=== PATIENT | female | born 1990 | race African-American/Black ===

== ENCOUNTER 2016-10-18 11:58 | Emergency (ER) | payer OTHER ==
[~2016-10-18] VITALS: Ht 165.1 cm; Wt 49.0 kg
[~2016-10-18 11:58] MED LIST: SULF1TAB24 PO
[2016-10-18 12:18] VITALS: BP 99/67
[2016-10-18] MEDS ORDERED: AMOX1TAB61 PO (13:34)
--- NOTE | 2016-10-18 13:35 | PHYS DOC ---
Past Medical History Past Medical History: Asthma Past Surgical History: No Surgical History Alcohol Use: None Drug Use: None Adult General Chief Complaint Chief Complaint: EARACHE/EAR PAIN [facility] HPI Patient is a 26 year old female presents to the emergency department stating that she's been having right ear pain for the last few days. She states that last night she was a had some nasal congestion. Denies any fever, chills or any nausea vomiting. Patient denies taking any medications to help with pain or discomfort. Patient denies any possibility of being . Review of Systems Review of Systems Constitutional: Denies fever or chills [] Eyes: Denies change in visual acuity, redness, or eye pain [] HENT: Complaining nasal congestion, and ear pain right denies sore throat Respiratory: Denies cough or shortness of breath [] Cardiovascular: No additional information not addressed in HPI [] GI: Denies abdominal pain, nausea, vomiting, bloody stools or diarrhea [] : Denies dysuria or hematuria [] Musculoskeletal: Denies back pain or joint pain [] Integument: Denies rash or skin lesions [] Neurologic: Denies headache, focal weakness or sensory changes [] Endocrine: Denies polyuria or polydipsia [] Allergies Allergies Allergies Coded Allergies Type Severity Reaction Last Updated Verified Influenza Virus Vaccines Allergy Intermediate SICK 10/04/15 Yes Physical Exam Physical Exam Constitutional: Well developed, well nourished, no acute distress, non-toxic appearance. [] HENT: Normocephalic, atraumatic, bilateral external ears normal, oropharynx moist, no oral exudates, nose normal. Bilateral tympanic membranes appear to be normal. Throat with postnasal drip with redness. No erythematous no exudate noted. Eyes: PERRLA, EOMI, conjunctiva normal, no discharge. [] Neck: Normal range of motion, no tenderness, supple, no stridor. [] Cardiovascular:Heart rate regular rhythm, no murmur [] Lungs & Thorax: Bilateral breath sounds clear to auscultation [] Skin: Warm, dry, no erythema, no rash. [] Back: No tenderness Extremities: No tenderness, no cyanosis, no clubbing, ROM intact, no edema. [] Neurologic: Alert and oriented X 3, normal motor function, normal sensory function, no focal deficits noted. [] Psychologic: Affect normal, judgement normal, mood normal. [] Current Patient Data Vital Signs Vital Signs Date Time Temp Pulse Resp B/P (MAP) Pulse Ox O2 Delivery O2 Flow Rate FiO2 10/18/16 12:18 98.2 71 16 100 Room Air 98.2 EKG EKG [] Radiology/Procedures Radiology/Procedures [] Course & Med Decision Making Course & Med Decision Making Pertinent Labs and Imaging studies reviewed. (See chart for details) Patient was recommended to use Afrin 1 spray to bilateral naris twice a day for the next 3 days. Also recommended Sudafed and Mucinex DM. Patient was also provided with an antibiotic Augmentin. She'll be discharged home in stable condition with recommendations to drink plenty of fluids. Patient was provided with signs and symptoms to return back to emergency department. Patient agrees with discharge instructions treatment regimens follow-up recommendations. All questions and concerns been answered at patient's bedside. [] Dragon Disclaimer Dragon Disclaimer This electronic medical record was generated, in whole or in part, using a voice recognition dictation system. Departure Departure Impression: Primary Impression: Upper respiratory infection Additional Impression: Otalgia of right ear Disposition: HOME, SELF-CARE Condition: STABLE Referrals: NO PCP (PCP) Patient Instructions: Otalgia-Brief, Upper Respiratory Infection, Adult, Easy- to-Read Additional Instructions: Activity as tolerated. You may use Afrin [id number] 1 spray to bilateral naris twice a day for 3 days only. Were you may use Sudafed [id number] to help with nasal congestion. He is as instructed by aerial survey technician. Mucinex DM will also help with nasal congestion. Take this as directed by aerial survey technician as well. Antibiotics as prescribed. Drink plenty of fluids. Tylenol or ibuprofen for fever chills or generalized body aches and discomfort. Follow-up the primary care physician in the next week. Return back to emergency prior signs symptoms of become worse. Scripts Amoxicillin/Potassium Clav (AUGMENTIN [id number] TABLET) 1 Each Tablet 1 TAB PO BID, #20 TAB Prov: FABIANO RAMIRES APRN 10/18/16 Problem Qualifiers Primary Impression: Upper respiratory infection URI type: unspecified URI Qualified Codes: J06.9 - Acute upper respiratory infection, unspecified FABIANO RAMIRES APRN Oct 18, 2016 13:35
== END 2016-10-18 13:53 | disposition home or self-care (01) ==
LOC: ER 11:58
DX: H92.01 Otalgia, right ear (principal); J06.9 Acute upper respiratory infection, unspecified; J45.909 Unspecified asthma, uncomplicated; Z88.7 Allergy status to serum and vaccine
CPT/HCPCS: 99283

== ENCOUNTER 2017-09-18 08:16 | Emergency (ER) | payer OTHER ==
[2017-09-18] MEDS: IPRATRPIUM/ALBUTEROL 0.5/2.5MG 3 ML NEBU. NEB (08:42)
== END 2017-09-18 08:58 | disposition home or self-care (01) ==
LOC: ER 08:16
DX: O99.511 Diseases of the respiratory system complicating pregnancy, first trimester (principal); O26.891 Other specified pregnancy related conditions, first trimester; J45.909 Unspecified asthma, uncomplicated; J06.9 Acute upper respiratory infection, unspecified; R07.89 Other chest pain; Z3A.01 Less than 8 weeks gestation of pregnancy; Z88.7 Allergy status to serum and vaccine
CPT/HCPCS: 94640; 99283; J7620